=== PATIENT | male | born 2000 | race Caucasian/White ===

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

== ENCOUNTER 2019-07-07 11:28 | Emergency (ER) | payer OTHER, SELFPAY | END 2019-07-07 12:21 | disposition home or self-care (01) | LOC: BURERS 11:28 | DX: J11.1 Influenza due to unidentified influenza virus with other respiratory manifestations (principal); R19.7 Diarrhea, unspecified; F17.290 Nicotine dependence, other tobacco product, uncomplicated | CPT/HCPCS: 87804; 99284 ==